=== PATIENT | male | born 1970 | race Two or more races ===

== ENCOUNTER 2022-09-15 20:43 | Emergency (ER) | payer OTHER ==
[~2022-09-15] VITALS: Ht 175.3 cm; Wt 76.2 kg
== END 2022-09-15 23:58 | disposition home or self-care (01) ==
LOC: ER 20:43
DX: S61.210A Laceration without foreign body of right index finger without damage to nail, initial encounter (principal); W26.0XXA Contact with knife, initial encounter; Y93.89 Activity, other specified; Y92.89 Other specified places as the place of occurrence of the external cause; Y99.9 Unspecified external cause status

== ENCOUNTER 2022-11-09 16:03 | Emergency (ER) | payer OTHER ==
[~2022-11-09] VITALS: Ht 177.8 cm; Wt 76.2 kg
== END 2022-11-09 17:44 | disposition home or self-care (01) ==
LOC: ER 16:03
DX: S61.402A Unspecified open wound of left hand, initial encounter (principal); X58.XXXA Exposure to other specified factors, initial encounter; Y93.89 Activity, other specified; Y92.89 Other specified places as the place of occurrence of the external cause; Y99.8 Other external cause status